=== PATIENT | male | born 1965 | race Caucasian/White ===

== ENCOUNTER 2017-07-20 12:33 | Day surgery (SDC) | payer BC, OTHER ==
[~2017-07-20 12:33] MED LIST: Cefuroxime 10 MG/ML SYRINGE EYERT SCH; Lidocaine 1% PF 2 ML SDV INJECT SCH; Pilocarpine 4% Ophth Soln 15 ML Bot EYERT SCH
[2017-07-20] MEDS: Polymyxin B/Trimethoprim 10 ML Bottle EYERT SCH ×3 (14:24→16:09)
[2017-07-20] MEDS: Brimonidine 0.2% Ophth Soln 5 ML Bottle EYERT SCH ×3 (14:29→16:09)
[2017-07-20] MEDS: Phenylephrine 2.5% Ophth Soln 2 ML Bot EYERT SCH ×5 (14:34→15:43)
--- NOTE | 2017-07-20 15:14 | PCM.PREANE ---
Preanesthetic Assessment - Anesthesia/Transfusion/Family Hx Anesthesia History: Prior Anesthesia Without Reaction Family History of Anesthesia Reaction: No Transfusion History: No Prior Transfusion(s) Intubation History: Unknown - Review of Systems General: No Symptoms Pulmonary: No Symptoms Cardiovascular: No Symptoms (History of HTN), Lightheadedness Gastrointestinal: No Symptoms (GERD) Neurological: No Symptoms (history of vertigo), Tingling (right hand ) Other: Reports: Sinus Problem, Depression - Physical Assessment NPO Status Date: 07/19/17 NPO Status Time: 21:00 Pulse: 74 O2 Sat by Pulse Oximetry: 97 Respiratory Rate: 16 Blood Pressure: 140/94 Temperature: 36.4 C Height: 1.75 m Weight: 99.79 kg ASA Class: 2 Mental Status: Alert & Oriented x3 Airway Class: Mallampati = 2 Dentition: Reports: Normal Dentition, Caries Thyro-Mental Finger Breadths: 3 Mouth Opening Finger Breadths: 3 ROM/Head Extension: Full Lungs: Clear to Auscultation, Normal Respiratory Effort Cardiovascular: Regular Rate, Regular Rhythm, No Murmurs - Allergies Allergies/Adverse Reactions: Allergies Allergy/AdvReac Type Severity Reaction Status Date / Time No Known Allergies Allergy Verified 07/19/17 13:59 - Anesthesia Plan Pre-Op Medication Ordered: None - Acknowledgements Anesthesia Type Planned: MAC Pt an Appropriate Candidate for the Planned Anesthesia: Yes Alternatives and Risks of Anesthesia Discussed w Pt/Guardian: Yes Pt/Guardian Understands and Agrees with Anesthesia Plan: Yes PreAnesthesia Questionnaire - SUBSTANCE USE Second Hand Smoke Exposure: No Days Per Week of Alcohol Use: 0 Recreational Drug Use History: No - HOME MEDS Home Medications: Home Meds Valsartan/Hydrochlorothiazide [Valsartan-Hctz 320-12.5 mg Tab] 1 tab PO DAILY [History] buPROPion [Wellbutrin XL] 1 tab PO DAILY 07/19/17 [History] - CURRENT (IN HOUSE) MEDS Current Meds: Current Medications Brimonidine Tartrate (Alphagan 0.2% Ophth Soln) 0 ml EYERT ASDIRECTED GABY Stop: 07/20/17 18:00 Last Admin: 07/20/17 14:29 Dose: 1 drop Cefuroxime Sodium (Zinacef) 0 mg EYERT ASDIRECTED GABY Stop: 07/20/17 18:00 Lidocaine HCl (Xylocaine-Mpf 1%) 10 ml INJECT ASDIRECTED GABY Stop: 07/20/17 18:00 Phenylephrine HCl (Kobe-Synephrine 2.5% Ophth Soln) 0 ml EYERT ASDIRECTED GABY Stop: 07/20/17 18:00 Last Admin: 07/20/17 14:55 Dose: 1 drop Pilocarpine HCl (Pilocar 4% Oph Soln) 0 ml EYERT ASDIRECTED GABY Stop: 07/20/17 18:00 Polymyxin/Trimethoprim Sulfate (Polytrim Ophth Soln) 0 ml EYERT ASDIRECTED GABY Stop: 07/20/17 18:00 Last Admin: 07/20/17 14:24 Dose: 1 drop Tetracaine HCl (Tetracaine 0.5% Steri-Unit Terese) 0 ml EYERT ASDIRECTED GABY Tropicamide (Mydriacyl 1% Oph Soln) 0 ml EYERT ASDIRECTED GABY Stop: 07/20/17 18:00 Last Admin: 07/20/17 15:00 Dose: 1 drop
[2017-07-20] MEDS: Tetracaine HCl/PF 0.5% 4 ML Bottle EYERT SCH ×2 (15:31→15:49)
[2017-07-20] MEDS ORDERED: Propofol 200 MG/20 ML SDV ONE (16:01)
[2017-07-20] MEDS ORDERED: Midazolam 1 MG/ML 2 ML SDV ONE (16:01)
[2017-07-20] MEDS ORDERED: Lactated Ringers 1,000 ML ONE (16:14)
== END 2017-07-20 16:55 | disposition home or self-care (01) ==
LOC: JD.SDS 12:33
PROVIDERS: ATTEND Ophthalmology
DX: H25.043 Posterior subcapsular polar age-related cataract, bilateral (principal); H25.033 Anterior subcapsular polar age-related cataract, bilateral; H02.831 Dermatochalasis of right upper eyelid; H02.834 Dermatochalasis of left upper eyelid; M19.90 Unspecified osteoarthritis, unspecified site; I10 Essential (primary) hypertension; F32.9 Major depressive disorder, single episode, unspecified; K21.9 Gastro-esophageal reflux disease without esophagitis; Z79.899 Other long term (current) drug therapy; Z98.890 Other specified postprocedural states
CPT/HCPCS: 66984; C1780; J0697; J2250; J7120; A9270-GY; J2704

== ENCOUNTER → 2017-08-10 | Day surgery (SDC) | payer OTHER ==
[~2017-08-10] MED LIST changes: +Cefuroxime 10 MG/ML SYRINGE EYELF SCH; -Cefuroxime 10 MG/ML SYRINGE EYERT SCH; +Lactated Ringers 1,000 ML IV SCH; +Lidocaine 1%/Sod Bicarbonate in NS 8.4% 1 ML Syringe IV PRN; +Midazolam 1 MG/ML 2 ML SDV ONE; +Pilocarpine 4% Ophth Soln 15 ML Bot EYELF SCH; -Pilocarpine 4% Ophth Soln 15 ML Bot EYERT SCH; +Propofol 200 MG/20 ML SDV ONE; +Sodium Chloride 0.9% 10 ML Syringe FLUSH PRN
[2017-08-10] MEDS: Polymyxin B/Trimethoprim 10 ML Bottle EYELF SCH ×3 (07:10→08:33)
[2017-08-10] MEDS: Brimonidine 0.2% Ophth Soln 5 ML Bottle EYELF SCH ×3 (07:15→08:33)
[2017-08-10] MEDS: Phenylephrine 2.5% Ophth Soln 2 ML Bot EYELF SCH ×5 (07:20→08:13)
[2017-08-10] MEDS: Tetracaine HCl/PF 0.5% 4 ML Bottle EYELF SCH ×2 (08:03→08:27)
== END ==
LOC: JD.SDS 06:56
PROVIDERS: ATTEND Ophthalmology
DX: H25.042 Posterior subcapsular polar age-related cataract, left eye (principal); H25.032 Anterior subcapsular polar age-related cataract, left eye; H02.831 Dermatochalasis of right upper eyelid; H02.834 Dermatochalasis of left upper eyelid; I10 Essential (primary) hypertension; M19.90 Unspecified osteoarthritis, unspecified site; Z98.41 Cataract extraction status, right eye; Z96.1 Presence of intraocular lens; Z79.899 Other long term (current) drug therapy; Z98.890 Other specified postprocedural states
CPT/HCPCS: 66984; J0697; J2250; V2632; A9270-GY; J2704

== ENCOUNTER 2023-07-08 06:00 | Day surgery (SDC) | payer OTHER ==
[2023-07-08] MEDS ORDERED: Triamcinolone Acetonide 40 MG/ML 1 ML SDV ONE (06:10)
[2023-07-08] MEDS ORDERED: Lidocaine 1% 10 ML MDV ONE (06:11)
[2023-07-08] MEDS ORDERED: Midazolam 1 MG/ML 2 ML SDV ONE (06:29)
[2023-07-08] MEDS ORDERED: Lidocaine 1% 5 ML VIAL ONE (06:30)
[2023-07-08] MEDS ORDERED: Propofol 200 MG/20 ML SDV ONE (06:30)
[2023-07-08] MEDS: Bupivacaine 0.25% 10 ML SDV ONE ×2 (07:16→07:22)
[2023-07-08] MEDS ORDERED: Lactated Ringers 1,000 ML IV SCH (08:00)
[2023-07-08] MEDS ORDERED: Sodium Chloride 0.9% 10 ML Syringe FLUSH PRN (08:00)
[2023-07-08] MEDS ORDERED: Sodium Chloride 0.9% 10 ML Syringe FLUSH SCH (09:00)
== END 2023-07-08 08:05 | disposition home or self-care (01) ==
LOC: JD.SDS 06:00
PROVIDERS: ATTEND Orthopaedic Surgery
DX: G56.13 Other lesions of median nerve, bilateral upper limbs (principal); G56.03 Carpal tunnel syndrome, bilateral upper limbs; I10 Essential (primary) hypertension; Z79.899 Other long term (current) drug therapy
CPT/HCPCS: 20526; 64721; J2250; J2704; J3301; J3490; J7120; 01810